=== PATIENT | female | born 1985 | race Caucasian/White ===

== ENCOUNTER 2016-09-26 22:07 | Emergency (ER) | payer MEDICAID ==
[2016-09-26] MEDS ORDERED: Sodium Chloride 0.9% 1,000 ML IV ONE ×2 (22:55→22:58)
[2016-09-26 23:00] LABS: RBC URINE < 1 /hpf (0-3); URINE BILIRUBIN NEGATIVE (NEGATIVE); URINE BLOOD NEGATIVE (NEGATIVE); URINE COLOR Straw (YELLOW); URINE GLUCOSE (UA) NORMAL (Normal); URINE KETONE NEGATIVE (NEGATIVE); URINE LEUKOCYTE ESTERASE NEG Leu/uL (Negative); URINE PROTEIN NEGATIVE (NEGATIVE); URINE UROBILINOGEN NORMAL mg/dL (0.2-1.0); WBC URINE < 1 /hpf (0-5)
[2016-09-26] MEDS ORDERED: Sodium Chloride 0.9% 1,000 ML ONE ×2 (23:24)
[2016-09-26 23:30] LABS: BASO # 0.1 K/uL (0.0-0.2); EOS # 0.2 K/uL (0.0-0.7); EOS % 2.3 % (0.0-4.0); LYMPH # 1.9 K/uL (1.0-4.3); LYMPH % 19.9 % (20.0-40.0); MEAN CORPUSCULAR HEMOGLOBIN 24.1 pg (27.0-31.0); MEAN CORPUSCULAR HGB CONC 31.9 g/dL (33.0-37.0); MEAN PLATELET VOLUME 8.2 fL (7.2-11.7); MONO # 1.3 K/uL (0.0-0.8); RED CELL DISTRIBUTION WIDTH 16.6 % (11.5-14.5); WHITE BLOOD COUNT 9.4 K/uL (4.8-10.8)
[2016-09-26 23:35] LABS: MEAN CELL VOLUME 75.5 fL (81.0-99.0)
[2016-09-26 23:40] LABS: CHLORIDE 100 mmol/L (98-107); SODIUM 138 mmol/L (132-148)
[2016-09-26 23:41] LABS: POTASSIUM 3.8 mmol/L (3.6-5.2)
[2016-09-26 23:43] LABS: ALB/GLOB RATIO 1.1 (1.0-2.1); ALKALINE PHOSPHATASE 88 U/L (38-126); ALT/SGPT 36 U/L (9-52); AST/SGOT 25 U/L (14-36); BILIRUBIN,TOTAL 0.2 mg/dL (0.2-1.3); BLOOD UREA NITROGEN 8 mg/dL (7-17); CARBON DIOXIDE 24 mmol/L (22-30); GFR AFRICAN-AMERICAN > 60; GLUCOSE,RANDOM 88 mg/dL (65-105); TOTAL PROTEIN 7.7 g/dL (6.3-8.3)
--- NOTE | 2016-09-27 01:00 | C.PDOC ---
History Of Present Illness Patient presents to the ED with complaints of generalized malaise over the last three days, with subjective fever. Patient has had several episodes of vomiting. but no diarrhea, Slight sore throat and non productive cough. Patient denies taking any medication and denies diarrhea. Time Seen by Provider: 09/26/16 22:49 Chief Complaint (Nursing): GI Problem History Per: Patient History/Exam Limitations: no limitations Onset/Duration Of Symptoms: Days Current Symptoms Are (Timing): Worse Past Medical History Reviewed: Historical Data, Nursing Documentation, Vital Signs Vital Signs: Last Vital Signs Temp 98.1 F 09/27/16 01:28 Pulse 76 09/27/16 01:28 Resp 20 09/27/16 01:28 BP 111/65 09/27/16 01:28 Pulse Ox 100 09/27/16 01:28 - Medical History PMH: Asthma, Diabetes (type II, no meds) Family History: States: Unknown Family Hx - Social History Hx Tobacco Use: Yes Hx Alcohol Use: Yes Hx Substance Use: No - Immunization History Hx Tetanus Toxoid Vaccination: No Hx Influenza Vaccination: No Hx Pneumococcal Vaccination: No Review Of Systems Except As Marked, All Systems Reviewed And Found Negative. Constitutional: Negative for: Fever, Chills ENT: Positive for: Throat Pain (slight sore throat ) Respiratory: Positive for: Cough (dry cough) Gastrointestinal: Positive for: Vomiting (single episode ). Negative for: Diarrhea Physical Exam - Physical Exam Appears: Non-toxic Skin: Warm, Dry Oral Mucosa: Dry Tongue: Normal Appearing Throat: Normal, No Erythema, No Exudate Neck: Supple Chest: Symmetrical Cardiovascular: Rhythm Regular, No Murmur Respiratory: Normal Breath Sounds, No Rales, No Wheezing Gastrointestinal/Abdominal: Soft, No Tenderness Extremity: Normal ROM, No Pedal Edema Neurological/Psych: Oriented x3, Normal Speech, Normal Cognition ED Course And Treatment - Laboratory Results Result Diagrams: 09/26/16 23:27 09/26/16 23:27 O2 Sat by Pulse Oximetry: 98 Progress Note: IV fluids, zofran, pepcid toradol Medical Decision Making Medical Decision Making: Pt remained stable in the ED Abd soft, tolerated PO Unremarkable test results discussed with pt Plan dc home Disposition - Disposition Disposition: HOME/ ROUTINE Disposition Time: 02:00 Condition: GOOD Additional Instructions: Return to the ED for any new or worsening symptoms No motrin or aleve with the Rx meds Prescriptions: Naproxen [Naprosyn] 1 tab PO BID PRN #25 tab PRN Reason: Pain Famotidine [Pepcid] 1 tab PO BID #10 tab Ondansetron [Zofran Odt] 1 odt PO BID PRN #6 odt PRN Reason: .nausea vomiting Instructions: Acute Nausea and Vomiting (ED), Viral Syndrome (ED) - Clinical Impression Clinical Impression: Vomiting, Influenza-like illness - Scribe Statement The provider has reviewed the documentation as recorded by the Scribguille Lemus All medical record entries made by the Simoneibguille were at my direction and personally dictated by me. I have reviewed the chart and agree that the record accurately reflects my personal performance of the history, physical exam, medical decision making, and the department course for this patient. I have also personally directed, reviewed, and agree with the discharge instructions and disposition.
[2016-09-27 01:49] VITALS: BP 111/65; PULSE 76; RESP 20; TEMP 98.1
[2016-09-27 01:56] VITALS: O2SAT 98
== END 2016-09-27 02:19 | disposition home or self-care (01) ==
LOC: C.ER 22:07
DX: J11.1 Influenza due to unidentified influenza virus with other respiratory manifestations (principal); R11.10 Vomiting, unspecified